=== PATIENT | female | born 1985 | race Hispanic/Latino ===

== ENCOUNTER 2017-12-02 07:42 | Emergency (ER) | payer OTHER, SELFPAY ==
[2017-12-02] MEDS ORDERED: NA CHLORIDE 0.9% 500 ML ONE (08:17)
[2017-12-02] MEDS ORDERED: ONDANSETRON 4 MG/2 ML VIAL ONE (08:17)
[2017-12-02 08:35] LABS: Absolute Lymphocytes (CBC) 1.8 K/uL (0.7-4.9); Absolute Monocytes 0.7 K/uL (0.1-1.3); Absolute Neutrophil 4.8 K/uL (1.8-8.0); Basophils % 0.2 % (0-1.3); Eosinophils % 0.6 % (0-4.4); Hematocrit 37.6 % (36.0-45.0); Lymphocytes % 24.9 % (15.3-44.8); MCH 29.5 pg (27.0-35.0); MCV 87.3 fL (80-100); MPV 8.6 fL (7.6-11.3); Monocytes % 9.6 % (3.3-12.3); RBC Red Blood Cell Count 4.31 M/uL (3.86-4.86)
[2017-12-02 08:37] LABS: Urine Blood TRACE (NEG); Urine Glucose NEGATIVE (NEG); Urine Protein NEGATIVE (NEG); Urine pH 8.5 (5.0-7.0)
[2017-12-02 08:59] LABS: BUN Blood Urea Nitrogen 9 mg/dL (7-18); Bicarbonate 30 mmol/L (21-32); Glucose Level 88 mg/dL (74-106); HCG, Quantitative 1040 mIU/mL (1-3); Potassium 3.5 mmol/L (3.5-5.1); Sodium Level 139 mmol/L (136-145)
[2017-12-02] MEDS ORDERED: NA CHLORIDE 0.9% 1,000 ML ONE (09:32)
--- NOTE | 2017-12-02 09:33 | RAD REPORT ---
EXAM DESCRIPTION: US - Renal Ultrasound-Limited - 12/02/2017 8:39 am CLINICAL HISTORY: LLQ pain and left flank;Abd pain COMPARISON: No comparisons FINDINGS: A limited left renal sonogram was requested. The left kidney measures 12.0 x 5.4 x 4.7 cm. No hydronephrosis, focal mass or perinephric fluid. IMPRESSION: Unremarkable left renal ultrasound.
--- NOTE | 2017-12-02 10:47 | RAD REPORT ---
EXAM DESCRIPTION: US - Transvaginal OB - 12/02/2017 8:43 am CLINICAL HISTORY: LLQ L flank;Abd pain COMPARISON: No comparisons FINDINGS: The uterus is enlarged measuring 11.2 x 7.9 x 7.6 cm. Several fibroids are present the lar gest subserosal right side measuring 3.5 x 2.3 cm. Fluid is present in the endometrium. Endometrial thickening is noted. There is no finding of an IUP s een. The right ovary measures 2.1 x 1.4 x 1.4 cm. Left ovary measures 3.1 x 1.9 x 1.6 cm. The maternal adnexa and ovaries are within normal limits. Normal Doppler blood flow was demonstrated to both ovaries. Mild fluid is present in the cul de sac. IMPRESSION: There is no finding to indicate an IUP. Mild free fluid is seen in the pelvis. Close int erval followup assessment would be advised with serial HCG levels and all follow-up ultrasound. Fibroid uterus is noted with a prominent subserosal fibroid noted measuring 3.5 x 2.3 cm.
--- NOTE | 2017-12-02 10:50 | EDPHYS ---
Physician Documentation [facility] Name: Hien Bocanegra Age: 32 yrs Sex: Female : 1985 Arrival Date: 12/02/2017 Time: 07:45 Bed 8 Private MD: None, None ED Physician Kendall Guajardo HPI: 12/02 08:50 This 32 yrs old Female presents to ER via Ambulatory with complaints of 5wks kdr , Abdominal Pain. 08:50 The patient presents with abdominal pain in the left upper quadrant, in the left lower kdr quadrant. Onset: The symptoms/episode began/occurred. 08:51 The symptoms radiate to the left flank. Associated signs and symptoms: Pertinent kdr positives: nausea, Pertinent negatives: anorexia, chest pain, constipation, diarrhea, dysuria, fever, headache, hematuria, palpitations, shortness of breath, vaginal discharge, vomiting, vomiting blood. The symptoms are described as intermittent, sharp. Modifying factors: The symptoms are alleviated by nothing, the symptoms are aggravated by breathing deeply, movement, touching the area, walking. Severity of pain: At its worst the pain was mild moderate in the emergency department the pain is unchanged. The patient has not experienced similar symptoms in the past. The patient has not recently seen a physician. The patient took a home test a few days ago and it was positive. 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 - Social history:: Smoking status: Patient/guardian denies using tobacco. - Ebola Screening: : Patient denies travel to an Ebola-affected area in the 21 days before illness onset. ROS: 08:54 Constitutional: Negative for fever, chills, and weight loss, Eyes: Negative for injury, kdr pain, redness, and discharge, ENT: Negative for injury, pain, and discharge, Neck: Negative for injury, pain, and swelling, Cardiovascular: Negative for chest pain, palpitations, and edema, Respiratory: Negative for shortness of breath, cough, wheezing, and pleuritic chest pain, Back: Negative for injury and pain, : Negative for injury, bleeding, discharge, and swelling, MS/Extremity: Negative for injury and deformity, Skin: Negative for injury, rash, and discoloration, Neuro: Negative for headache, weakness, numbness, tingling, and seizure activity. Psych: Negative for depression, anxiety, suicide ideation, homicidal ideation, and hallucinations, Allergy/Immunology: Negative for hives, rash, and allergies, Endocrine: Negative for neck swelling, polydipsia, polyuria, polyphagia, and marked weight changes, Hematologic/Lymphatic: Negative for swollen nodes, abnormal bleeding, and unusual bruising. 08:54 Abdomen/GI: Positive for abdominal pain, nausea, diarrhea, States that whenever she eats she had diarrhea, Negative for vomiting, constipation, abdominal distension, anorexia, dysphagia, hematemesis, black/tarry stool, rectal pain, rectal bleeding, bowel incontinence. Exam: 08:54 Constitutional: This is a well developed, well nourished patient who is awake, alert, kdr and in no acute distress. Head/Face: Normocephalic, atraumatic. Eyes: Pupils equal round and reactive to light, extra-ocular motions intact. Lids and lashes normal. Conjunctiva and sclera are non-icteric and not injected. Cornea within normal limits. Periorbital areas with no swelling, redness, or edema. Neck: Trachea midline, no thyromegaly or masses palpated, and no cervical lymphadenopathy. Supple, full range of motion without nuchal rigidity, or vertebral point tenderness. No Meningismus. Chest/axilla: Normal chest wall appearance and motion. Nontender with no deformity. No lesions are appreciated. Cardiovascular: Regular rate and rhythm with a normal S1 and S2. No gallops, murmurs, or rubs. Normal PMI, no JVD. No pulse deficits. Respiratory: Lungs have equal breath sounds bilaterally, clear to auscultation and percussion. No rales, rhonchi or wheezes noted. No increased work of breathing, no retractions or nasal flaring. Back: No spinal tenderness. No costovertebral tenderness. Full range of motion. Skin: Warm, dry with normal turgor. Normal color with no rashes, no lesions, and no evidence of cellulitis. MS/ Extremity: Pulses equal, no cyanosis. Neurovascular intact. Full, normal range of motion. Neuro: Awake and alert, GCS 15, oriented to person, place, time, and situation. Cranial nerves II-XII grossly intact. Motor strength 5/5 in all extremities. Sensory grossly intact. Cerebellar exam normal. Normal gait. Psych: Awake, alert, with orientation to person, place and time. Behavior, mood, and affect are within normal limits. 08:54 Abdomen/GI: Inspection: abdomen appears normal, Bowel sounds: diminished, in all quadrants, Palpation: soft, moderate abdominal tenderness, in the left lower quadrant. Vital Signs: 07:53 BP 122 / 75; Pulse 73; Resp 18; Pulse Ox 100% on R/A; tw2 07:58 Temp 98.2(TE); Weight 104.33 kg (R); Height 5 ft. 9 in. (175.26 cm) (R); Pain 7/10; aa5 08:51 BP 112 / 73; Pulse 66; Resp 17; Pulse Ox 100% on R/A; tw2 10:28 BP 114 / 62; Pulse 65; Resp 16; Pulse Ox 100% ; jl7 10:55 BP 114 / 68; Pulse 67; Resp 17; Pulse Ox 100% on R/A; tw2 07:58 Body Mass Index 33.96 (104.33 kg, 175.26 cm) aa5 MDM: 08:54 Data reviewed: vital signs, nurses notes, lab test result(s), radiologic studies. kdr Counseling: I had a detailed discussion with the patient and/or guardian regarding: the historical points, exam findings, and any diagnostic results supporting the discharge/admit diagnosis, lab results, radiology results. 10:49 Patient medically screened. kdr 12/02 08:01 Order name: Quantitative Hcg; Complete Time: 09:11 kdr 12/02 08:01 Order name: Abo/rh Typing; Complete Time: 09:11 kdr 12/02 08:01 Order name: Basic Metabolic Panel; Complete Time: 09:11 kdr 12/02 08:01 Order name: CBC with Diff; Complete Time: 09:11 kdr 12/02 08:05 Order name: Urine Dipstick--Ancillary (enter results); Complete Time: 09:11 bd 12/02 08:05 Order name: Urine --Ancillary (enter results); Complete Time: 09:11 bd 12/02 08:16 Order name: Renal Ultrasound-Limited; Complete Time: 09:46 EDMS 12/02 08:39 Order name: Transvaginal OB EDKY 12/02 08:57 Order name: ABO/RH no charge; Complete Time: 09:11 EDMS 12/02 08:01 Order name: IV Saline Lock; Complete Time: 08:04 kdr 12/02 08:01 Order name: Labs collected and sent; Complete Time: 08:04 kdr 12/02 08:01 Order name: NPO; Complete Time: 08:04 kdr 12/02 08:01 Order name: Urine Dipstick-Ancillary (obtain specimen); Complete Time: 08:16 kdr Administered Medications: 08:13 Drug: Zofran 4 mg Route: IVP; Site: right antecubital; tw2 09:15 Follow up: Response: No adverse reaction; Nausea is decreased tw2 08:15 Drug: NS 0.9% 500 ml Route: IV; Rate: bolus; Site: right antecubital; tw2 09:40 Follow up: Response: No adverse reaction; IV Status: Completed infusion; IV Intake: tw2 500ml 09:29 Drug: NS 0.9% 1000 ml Route: IV; Rate: 1 bolus; Site: right antecubital; tw2 11:00 Follow up: IV Status: Order to discontinue infusion; IV Intake: 200ml ; pt refused the tw2 rest of the iv fluids approx 800 ml Disposition: 12/02/17 10:49 Discharged to Home. Impression: related conditions, unspecified, Diarrhea, unspecified. - Condition is Stable. - Discharge Instructions: First Trimester of , [id number], Diarrhea, Adult, [id number]-[id number], Abdominal Pain During , Ingr-ea-Trxz. - Medication Reconciliation Form, Thank You Letter form. - Follow up: Private Physician; When: 48 Hours; Reason: Further diagnostic work-up, Repeat Beta-HCG (48 Hours). Follow up: Kyree Bhat MD; When: 48 Hours; Reason: Further diagnostic work-up, Repeat Beta-HCG (48 Hours). - Problem is new. - Symptoms have improved. Signatures: Dispatcher [facility] Kendall Guajardo MD MD kdr Maribel Francois RN RN aa5 Rose Marie Delgado RN RN tw2 Corrections: (The following items were deleted from the chart) 08:16 08:11 Abdomen Limited+US.RAD.BRZ ordered. EDKY EDMS 08:39 08:11 Transvaginal Study (Probe)+US.RAD.BRZ ordered. EDKY EDMS 11:02 10:49 12/02/2017 10:49 Discharged to Home. Impression: related conditions, tw2 unspecified; Diarrhea, unspecified. Condition is Stable. Forms are Medication Reconciliation Form, Thank You Letter, Antibiotic Education, Prescription Opioid Use. Follow up: Private Physician; When: 48 Hours; Reason: Further diagnostic work-up, Repeat Beta-HCG (48 Hours). Follow up: Kyree Bhat; When: 48 Hours; Reason: Further diagnostic work-up, Repeat Beta-HCG (48 Hours). Problem is new. Symptoms have improved. kdr
--- NOTE | 2017-12-02 10:50 | ER ---
Nurse's Notes [facility] Name: Hien Bocanegra Age: 32 yrs Sex: Female : 1985 Arrival Date: 12/02/2017 Time: 07:45 Bed 8 Private MD: None, None Diagnosis: related conditions, unspecified;Diarrhea, unspecified Presentation: 12/02 07:54 Presenting complaint: Patient states: LLQ pain radiating to left low back that began 2 aa5 weeks ago. Pt reports nausea, denies vomiting. Pt reports positive test approximately 3 days ago. Denies vaginal bleeding. Transition of care: patient was not received from another setting of care. Onset of symptoms was November 2017. Risk Assessment: Do you want to hurt yourself or someone else? Patient reports no desire to harm self or others. Initial Sepsis Screen: Does the patient meet any 2 criteria? No. Patient's initial sepsis screen is negative. Does the patient have a suspected source of infection? No. Patient's initial sepsis screen is negative. Care prior to arrival: None. 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 - Social history:: Smoking status: Patient/guardian denies using tobacco. - Ebola Screening: : Patient denies travel to an Ebola-affected area in the 21 days before illness onset. Screenin:54 Abuse screen: Denies threats or abuse. Nutritional screening: No deficits noted. tw2 Tuberculosis screening: No symptoms or risk factors identified. Fall Risk None identified. Assessment: 08:01 General: Appears uncomfortable, well groomed, Behavior is calm, cooperative, tw2 appropriate for age. Pain: Complains of pain in abdomen. Neuro: Level of Consciousness is awake, alert, obeys commands, Oriented to person, place, time, situation. Cardiovascular: Denies chest pain, shortness of breath, Heart tones S1 S2 Patient's skin is warm and dry. Respiratory: Airway is patent Respiratory effort is even, unlabored, Respiratory pattern is regular, symmetrical, Breath sounds are clear bilaterally. GI: Bowel sounds present X 4 quads. Abd is soft X 4 quads Reports lower abdominal pain, nausea, that radiates to left lower back. : No signs and/or symptoms were reported regarding the genitourinary system. EENT: No signs and/or symptoms were reported regarding the EENT system. Derm: No signs and/or symptoms reported regarding the dermatologic system. Musculoskeletal: Range of motion: intact in all extremities. 08:51 Reassessment: Patient appears in no apparent distress at this time. Patient and/or tw2 family updated on plan of care and expected duration. Pain level reassessed. Patient is alert, oriented x 3, equal unlabored respirations, skin warm/dry/pink. Patient states feeling better. Patient states symptoms have improved. 09:40 Reassessment: Patient appears in no apparent distress at this time. Patient and/or tw2 family updated on plan of care and expected duration. Pain level reassessed. Patient is alert, oriented x 3, equal unlabored respirations, skin warm/dry/pink. Patient states feeling better. Patient states symptoms have improved. 11:01 Reassessment: Patient appears in no apparent distress at this time. Patient and/or tw2 family updated on plan of care and expected duration. Pain level reassessed. Patient is alert, oriented x 3, equal unlabored respirations, skin warm/dry/pink. Patient states feeling better. Patient states symptoms have improved. Vital Signs: 07:53 BP 122 / 75; Pulse 73; Resp 18; Pulse Ox 100% on R/A; tw2 07:58 Temp 98.2(TE); Weight 104.33 kg (R); Height 5 ft. 9 in. (175.26 cm) (R); Pain 7/10; aa5 08:51 BP 112 / 73; Pulse 66; Resp 17; Pulse Ox 100% on R/A; tw2 10:28 BP 114 / 62; Pulse 65; Resp 16; Pulse Ox 100% ; jl7 10:55 BP 114 / 68; Pulse 67; Resp 17; Pulse Ox 100% on R/A; tw2 07:58 Body Mass Index 33.96 (104.33 kg, 175.26 cm) aa5 ED Course: 07:45 Patient arrived in ED. mr 07:45 None, None is Private Physician. mr 07:53 Rose Marie Delgado, RN is Primary Nurse. tw2 07:54 Arm band placed on Patient placed in an exam room, on a stretcher. aa5 07:54 Bed in low position. Call light in reach. Pulse ox on. NIBP on. Warm blanket given. tw2 07:56 Triage completed. aa5 07:59 Kendall Guajardo MD is Attending Physician. kdr 08:00 Inserted saline lock: 20 gauge in right antecubital area, using aseptic technique. tw2 Blood collected. 08:13 Urine collected: clean catch specimen, clear. mh5 08:16 Urine --Ancillary (enter results) Sent. mh5 08:16 Urine Dipstick--Ancillary (enter results) Sent. mh5 08:24 Patient taken to ultrasound. hr 08:39 Renal Ultrasound-Limited In Process Unspecified. EDMS 08:43 Transvaginal OB In Process Unspecified. EDMS 08:44 Ultrasound completed. Patient moved back from ultrasound. hr 10:47 Kyree Bhat MD is Referral Physician. kdr 11:02 No provider procedures requiring assistance completed. IV discontinued, intact, tw2 bleeding controlled, No redness/swelling at site. Pressure dressing applied. Administered Medications: 08:13 Drug: Zofran 4 mg Route: IVP; Site: right antecubital; tw2 09:15 Follow up: Response: No adverse reaction; Nausea is decreased tw2 08:15 Drug: NS 0.9% 500 ml Route: IV; Rate: bolus; Site: right antecubital; tw2 09:40 Follow up: Response: No adverse reaction; IV Status: Completed infusion; IV Intake: tw2 500ml 09:29 Drug: NS 0.9% 1000 ml Route: IV; Rate: 1 bolus; Site: right antecubital; tw2 11:00 Follow up: IV Status: Order to discontinue infusion; IV Intake: 200ml ; pt refused the tw2 rest of the iv fluids approx 800 ml Intake: 09:40 IV: 500ml; Total: 500ml. tw2 11:00 IV: 200ml; Total: 700ml. tw2 Outcome: 10:49 Discharge ordered by . kdr 11:02 Discharged to home ambulatory. tw2 11:02 Condition: stable 11:02 Discharge instructions given to patient, Instructed on discharge instructions, follow up and referral plans. Demonstrated understanding of instructions, follow-up care. 11:02 Patient left the ED. tw2 Signatures: Dispatcher [employer] Kendall Lemus MD MD kdr Rivera, Maria mr Rod, Maribel Davis, RN RN aa5 Rose Marie Delgado RN RN [email or web address] Janet Augustine Gloria Alcazar RN RN [id number] Corrections: (The following items were deleted from the chart) 07:59 07:58 Temp 98.2F Temporal; [place] aaKale
== END 2017-12-02 11:02 | disposition home or self-care (01) ==
LOC: ER 07:42
DX: R19.7 Diarrhea, unspecified (principal); Z3A.01 Less than 8 weeks gestation of pregnancy; Z91.040 Latex allergy status; Z91.048 Other nonmedicinal substance allergy status
CPT/HCPCS: 36415; 76775; 76817; 80048; 81003; 81025; 84702; 85025; 86900; 86901; 96361; 96374; 99284; J2405; J7030

== ENCOUNTER 2017-12-05 03:16 | Emergency (ER) | payer OTHER, SELFPAY ==
[2017-12-05 03:55] LABS: Urine Blood 2+ (NEG); Urine Glucose NEGATIVE (NEG); Urine Protein NEGATIVE (NEG); Urine Specific Gravity 1.025 (1.005-1.030); Urine pH 5.5 (5.0-7.0)
[2017-12-05] MEDS ORDERED: MORPHINE 4 MG/ML SYR ONE (04:13)
[2017-12-05] MEDS ORDERED: NA CHLORIDE 0.9% 500 ML ONE (04:13)
[2017-12-05] MEDS ORDERED: ONDANSETRON 4 MG/2 ML VIAL ONE ×2 (04:13→05:13)
[2017-12-05] MEDS ORDERED: FAMOTIDINE 20 MG/2 ML VIAL IV ONE (04:14)
--- NOTE | 2017-12-05 06:43 | EDPHYS ---
Physician Documentation [facility] Name: Hien Bocanegra Age: 32 yrs Sex: Female : 1985 Arrival Date: 12/05/2017 Time: 03:19 Bed 17 Private MD: ED Physician Casper Griffin HPI: 12/05 03:56 This 32 yrs old Female presents to ER via Ambulatory with complaints of ps1 Abdominal Pain, Vomiting/Diarrhea, 5 weeks preg. 03:56 patient presenting with nausea and vomting and abdominal pain. Pain localized to ps1 LLQ/adenexa. Pain is severe. Associated with diarrhea. recently seen for same and had indeterminate HCG <1500. No IUP on TVUS. Referred to Perlita. Has not seen him and does not have a relationship with him up to this point. She recently moved here from [place] and does not have an OB.. 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 - Social history:: Smoking status: Patient/guardian denies using tobacco, Patient/guardian denies using alcohol, street drugs. - Ebola Screening: : Patient negative for fever greater than or equal to 101.5 degrees Fahrenheit, and additional compatible Ebola Virus Disease symptoms Patient denies exposure to infectious person Patient denies travel to an Ebola-affected area in the 21 days before illness onset. ROS: 03:56 Constitutional: Negative for fever, chills, and weight loss, Eyes: Negative for injury, ps1 pain, redness, and discharge, Cardiovascular: Negative for chest pain, palpitations, and edema, Respiratory: Negative for shortness of breath, cough, wheezing, and pleuritic chest pain, Abdomen/GI: Negative for abdominal pain, nausea, vomiting, diarrhea, and constipation. 03:56 Skin: Negative for injury, rash, and discoloration, Neuro: Negative for headache, weakness, numbness, tingling, and seizure. 03:56 : Positive for pelvic pain. Exam: 03:56 Constitutional: This is a well developed, well nourished patient who is awake, alert, ps1 and in no acute distress. Head/Face: Normocephalic, atraumatic. Eyes: Pupils equal round and reactive to light, extra-ocular motions intact. Lids and lashes normal. Conjunctiva and sclera are non-icteric and not injected. Chest/axilla: Normal chest wall appearance and motion. Nontender with no deformity. No lesions are appreciated. Cardiovascular: Regular rate and rhythm. No gallops, murmurs, or rubs. Normal PMI, no JVD. No pulse deficits. Respiratory: Lungs have equal breath sounds bilaterally, clear to auscultation and percussion. No rales, rhonchi or wheezes noted. No increased work of breathing, no retractions or nasal flaring. 03:56 Skin: Warm, dry with normal turgor. Normal color with no rashes, no lesions, and no evidence of cellulitis. MS/ Extremity: Pulses equal, no cyanosis. Neurovascular intact. Full, normal range of motion. Neuro: Awake and alert, GCS 15, oriented to person, place, time, and situation. Cranial nerves II-XII grossly intact. Sensory grossly intact. 03:56 Abdomen/GI: Inspection: abdomen appears normal, Bowel sounds: normal, Palpation: moderate abdominal tenderness, in the left lower quadrant. Vital Signs: 03:32 BP 119 / 91; Pulse 94; Resp 20; Temp 98.9(O); Pulse Ox 100% on R/A; Weight 99.79 kg; ao Height 5 ft. 9 in. (175.26 cm); Pain 10/10; 04:35 BP 123 / 86; Pulse 85; Resp 16; Pulse Ox 94% ; Pain 0/10; ao 05:40 BP 124 / 84; Pulse 86; Resp 16; Pulse Ox 100% ; Pain 0/10; ao 03:32 Body Mass Index 32.49 (99.79 kg, 175.26 cm) ao MDM: 04:28 Patient medically screened. ps1 06:39 Data reviewed: vital signs, nurses notes, lab test result(s), Beta HCG: radiologic ps1 studies, ultrasound, and as a result, I will discharge patient. Counseling: I had a detailed discussion with the patient and/or guardian regarding: the historical points, exam findings, and any diagnostic results supporting the discharge/admit diagnosis, lab results, radiology results, to return to the emergency department if symptoms worsen or persist or if there are any questions or concerns that arise at home, patient has early IUP 5w1d. Low probability of heterotopic. Pain improved. Stable for dc with reglan. Follow up with Perlita. . 12/05 03:48 Order name: Urine Dipstick--Ancillary (enter results); Complete Time: 04:22 mw2 12/05 03:48 Order name: Urine --Ancillary (enter results); Complete Time: 04:22 mw2 12/05 03:53 Order name: Quantitative Hcg; Complete Time: 04:57 ps1 12/05 04:59 Order name: US Transvaginal Ob ps1 Administered Medications: 04:21 Drug: NS 0.9% 500 ml Route: IV; Rate: bolus; Site: left antecubital; ao 05:10 Follow up: IV Status: Completed infusion; IV Intake: 500ml ao 04:22 Not Given (Patient Refused): Reglan 10 mg IVP once; over 1 to 2 minutes ao 05:09 Drug: morphine 4 mg Route: IVP; Site: right antecubital; ao 06:51 Follow up: Response: No adverse reaction ao 05:10 Drug: Zofran 4 mg Route: IVP; Site: right antecubital; ao 06:51 Follow up: Response: No adverse reaction ao Disposition: 12/05/17 06:42 Discharged to Home. Impression: related conditions, unspecified, Nausea and vomiting, Abdominal and pelvic pain. - Condition is Stable. - Discharge Instructions: Abdominal Pain During , Hyperemesis Gravidarum. - Prescriptions for Reglan 10 mg Oral Tablet - take 1 tablet by ORAL route every 6 hours . take 30 minutes before meals and at bedtime; 100 tablet. - Medication Reconciliation Form, Thank You Letter, Antibiotic Education, Prescription Opioid Use form. - Follow up: Kyree Bhat MD; When: 2 - 3 days; Reason: Recheck today's complaints, Continuance of care, Re-evaluation by your physician. Follow up: Emergency Department; When: As needed; Reason: Worsening of condition. - Problem is an ongoing problem. - Symptoms have worsened. Signatures: Dispatcher [employer] Garth Robbins RN RN Casper Hutchinson MD MD ps1 Corrections: (The following items were deleted from the chart) 06:51 06:42 12/05/2017 06:42 Discharged to Home. Impression: related conditions, ao unspecified; Nausea and vomiting; Abdominal and pelvic pain. Condition is Stable. Forms are Medication Reconciliation Form, Thank You Letter, Antibiotic Education, Prescription Opioid Use. Follow up: Kyree Bhat; When: 2 - 3 days; Reason: Recheck today's complaints, Continuance of care, Re-evaluation by your physician. Follow up: Emergency Department; When: As needed; Reason: Worsening of condition. Problem is an ongoing problem. Symptoms have worsened. ps1
--- NOTE | 2017-12-05 06:43 | ER ---
Nurse's Notes [facility] Name: Hien Bocanegra Age: 32 yrs Sex: Female : 1985 Arrival Date: 12/05/2017 Time: 03:19 Bed 17 Private MD: Diagnosis: related conditions, unspecified;Nausea and vomiting;Abdominal and pelvic pain Presentation: 12/05 03:27 Presenting complaint: Patient states: Abdominal pain for 24 hours. Patient complains of ao right lower pain that started few hours ago. Patient reports diarrhea and a bloody mucus coming from rectum. Denies vaginal bleeding and about 5 weeks. Transition of care: patient was not received from another setting of care. Onset of symptoms was December 04, 2017 at 03:00. Risk Assessment: Do you want to hurt yourself or someone else? Patient reports no desire to harm self or others. Initial Sepsis Screen: Does the patient meet any 2 criteria? No. Patient's initial sepsis screen is negative. Does the patient have a suspected source of infection? No. Patient's initial sepsis screen is negative. Care prior to arrival: None. 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 - Social history:: Smoking status: Patient/guardian denies using tobacco, Patient/guardian denies using alcohol, street drugs. - Ebola Screening: : Patient negative for fever greater than or equal to 101.5 degrees Fahrenheit, and additional compatible Ebola Virus Disease symptoms Patient denies exposure to infectious person Patient denies travel to an Ebola-affected area in the 21 days before illness onset. Screenin:40 Abuse screen: Denies threats or abuse. Denies injuries from another. Nutritional ao screening: No deficits noted. Tuberculosis screening: No symptoms or risk factors identified. Fall Risk None identified. Assessment: 03:30 General: Appears in no apparent distress. comfortable, Behavior is calm, cooperative, ao appropriate for age. Pain: Complains of pain in abdomen Pain does not radiate. Neuro: Level of Consciousness is awake, alert, obeys commands, Oriented to person, place, time, situation, Appropriate for age Moves all extremities. Full function Speech is normal, Facial symmetry appears normal. Cardiovascular: Capillary refill < 3 seconds Patient's skin is warm and dry. Respiratory: Airway is patent Respiratory effort is even, unlabored, Respiratory pattern is regular, symmetrical. GI: Abdomen is obese, Bowel sounds present X 4 quads. Abd is soft and non tender X 4 quads. Reports nausea, vomiting. GI: Reports rectal bleeding. : No signs and/or symptoms were reported regarding the genitourinary system. EENT: No signs and/or symptoms were reported regarding the EENT system. Derm: No signs and/or symptoms reported regarding the dermatologic system. Skin is intact, Skin is pink, warm \T\ dry. normal, Skin temperature is warm. Musculoskeletal: Circulation, motion, and sensation intact. Range of motion: intact in all extremities. 04:35 Reassessment: Patient appears in no apparent distress at this time. Patient and/or ao family updated on plan of care and expected duration. Pain level reassessed. Patient refused Pepcid and morphine and stated that would rather be in pain then taking the risk affecting her . Patient was educated in medications. Dr Griffin was notified. 05:40 Reassessment: Patient appears in no apparent distress at this time. Patient and/or ao family updated on plan of care and expected duration. Pain level reassessed. Waiting on ultrasound. 06:14 Reassessment: Ultrasound at bedside. Patient stated she feel better after pain ao medication was given. 06:49 Reassessment: DC Instructions given to patient. patient agree with the POC and to ao follow up with DR Bhat. No questions at this time. Vital Signs: 03:32 BP 119 / 91; Pulse 94; Resp 20; Temp 98.9(O); Pulse Ox 100% on R/A; Weight 99.79 kg; ao Height 5 ft. 9 in. (175.26 cm); Pain 10/10; 04:35 BP 123 / 86; Pulse 85; Resp 16; Pulse Ox 94% ; Pain 0/10; ao 05:40 BP 124 / 84; Pulse 86; Resp 16; Pulse Ox 100% ; Pain 0/10; ao 03:32 Body Mass Index 32.49 (99.79 kg, 175.26 cm) ao ED Course: 03:19 Patient arrived in ED. es 03:27 Garth Rodriges, RN is Primary Nurse. ao 03:31 Triage completed. ao 03:33 Arm band placed on right wrist. Patient placed in an exam room, on a stretcher, on ao pulse oximetry, Patient notified of wait time. 03:40 Patient has correct armband on for positive identification. Placed in gown. Bed in low ao position. Call light in reach. Pulse ox on. NIBP on. 03:47 Casper Griffin MD is Attending Physician. ps1 04:02 Urine collected: clean catch specimen, jerson colored, Amount Voided: 25mL. oe 04:19 Inserted saline lock: 20 gauge in right antecubital area, using aseptic technique. oe Blood collected. 06:35 Ultrasound completed. Patient tolerated well. Notified ED Physician . sg3 06:37 US Transvaginal Ob In Process Unspecified. EDMS 06:41 Kyree Bhat MD is Referral Physician. ps1 06:48 No provider procedures requiring assistance completed. IV discontinued, intact, ao bleeding controlled, No redness/swelling at site. Pressure dressing applied. Administered Medications: 04:21 Drug: NS 0.9% 500 ml Route: IV; Rate: bolus; Site: left antecubital; ao 05:10 Follow up: IV Status: Completed infusion; IV Intake: 500ml ao 04:22 Not Given (Patient Refused): Reglan 10 mg IVP once; over 1 to 2 minutes ao 05:09 Drug: morphine 4 mg Route: IVP; Site: right antecubital; ao 06:51 Follow up: Response: No adverse reaction ao 05:10 Drug: Zofran 4 mg Route: IVP; Site: right antecubital; ao 06:51 Follow up: Response: No adverse reaction ao Intake: 05:10 IV: 500ml; Total: 500ml. ao Outcome: 06:42 Discharge ordered by . ps1 06:48 Discharged to home ambulatory. ao 06:48 Condition: stable 06:48 Discharge instructions given to patient, Instructed on discharge instructions, follow up and referral plans. Demonstrated understanding of instructions, follow-up care, medications. 06:51 Patient left the ED. ao Signatures: Dispatcher [employer] EDNJ Freya Lewis Alex RN RN ao Kun Valdes Phillip, MD MD ps1 Suzie Davis sg3 Corrections: (The following items were deleted from the chart) 03:54 03:27 Presenting complaint: Patient states: Abdominal pain for 24 hours. Patient ao complains of right lower pain that started few hours ago. Patient report mucus bloody coming from the rectum. ao 03:58 03:27 Presenting complaint: Patient states: Abdominal pain for 24 hours. Patient ao complains of right lower pain that started few hours ago. Patient report mucus bloody coming from the rectum. Denies vaginal bleeding and about 5 weeks ao 06:15 06:12 Reassessment: Patient appears in no apparent distress at this time. Patient ao and/or family updated on plan of care and expected duration. Pain level reassessed. Waiting on ultrasound ao
--- NOTE | 2017-12-05 08:25 | RAD REPORT ---
EXAM DESCRIPTION: US - Transvaginal OB - 12/05/2017 6:37 am CLINICAL HISTORY: Pelvic pain, left adnexal pain, positive Preliminary findings provided at the time of the study. COMPARISON: Ultrasound study December 02 FINDINGS: Approximately 3.5 centimeter right-side fundal subserosal fibroid has not changed over thi s very short interval. No other new or progressive myometrial finding. A small round fluid collection has developed in the fundal endometrial cavity, from the December 02 study. Average diameter would c orrespond to a 5 week 1 day gestational sac. No yolk sac or pole identifiable. Trace amount of fluid in the endometrial cavity. No left ovary abnormality. Doppler evaluation shows normal left ovarian blood flow pattern. No hemato ma mass or other left adnexal finding. No evidence for left adnexal ectopic . Right ovary was not identifiable, obscured by bowel. No right adnexal mass seen. IMPRESSION: A new 5 week 1 day sized round fluid collection in the endometrial cavity is consistent with a very early IUP. Trace amount of fluid in the endometrial cavity. No pole or yolk sac yet identifiable. Follow-up sonography could be performed based on symptoms and serial HCG values. Left ovary and left adnexa are unremarkable. No evidence for a left ectopic . Nonvisualization of the right ovary. No right adnexal mass seen.
== END 2017-12-05 06:51 | disposition home or self-care (01) ==
LOC: ER 03:16
DX: O26.891 Other specified pregnancy related conditions, first trimester (principal); Z3A.01 Less than 8 weeks gestation of pregnancy; R10.2 Pelvic and perineal pain; R10.9 Unspecified abdominal pain; R11.2 Nausea with vomiting, unspecified
CPT/HCPCS: 36415; 76817; 81003; 81025; 84702; 96361; 96374; 96375; 99284; J2405

== ENCOUNTER 2018-02-24 19:10 | Emergency (ER) | payer MEDICAID, OTHER ==
--- NOTE | 2018-02-24 20:45 | ER ---
Nurse's Notes [facility] Name: Hien Bocanegra Age: 32 yrs Sex: Female : 1985 Arrival Date: 02/24/2018 Time: 19:15 Bed Waiting Private MD: Diagnosis: Presentation: 02/24 19:38 Presenting complaint: Patient states: Gush of bright red blood at 1800 today that has aj stopped. Reports cramping in back. Transition of care: patient was not received from another setting of care. Onset of symptoms was February 24, 2018. Risk Assessment: Do you want to hurt yourself or someone else? Patient reports no desire to harm self or others. Initial Sepsis Screen: Does the patient meet any 2 criteria? No. Patient's initial sepsis screen is negative. Does the patient have a suspected source of infection? No. Patient's initial sepsis screen is negative. Care prior to arrival: None. 19:38 Method Of Arrival: Ambulatory aj 19:38 Acuity: IRVIN 3 aj 19:42 Note Patient stated "Should I just go to my OB in the morning? I don't want to wait. aj Can you just take me back now?" Patient informed of wait time. Triage Assessment: 19:39 General: Appears in no apparent distress. comfortable, Behavior is calm, cooperative, aj appropriate for age. Pain: Complains of pain in low back area. Neuro: Level of Consciousness is awake, alert, obeys commands, Oriented to person, place, time, situation, Appropriate for age. Respiratory: Airway is patent Respiratory effort is even, unlabored, Respiratory pattern is regular, symmetrical. : Reports vaginal bleeding that is bright red. Derm: Skin is intact, is healthy with good turgor, Skin is pink, warm \\T\\ dry. normal. 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 - Social history:: Smoking status: Patient/guardian denies using tobacco. - Ebola Screening: : Patient negative for fever greater than or equal to 101.5 degrees Fahrenheit, and additional compatible Ebola Virus Disease symptoms Patient denies exposure to infectious person Patient denies travel to an Ebola-affected area in the 21 days before illness onset No symptoms or risks identified at this time. Vital Signs: 19:39 BP 122 / 72; Pulse 87; Resp 20; Temp 98.2; Pulse Ox 99% on R/A; Weight 108.86 kg; aj Height 5 ft. 9 in. (175.26 cm); 19:39 Body Mass Index 35.44 (108.86 kg, 175.26 cm) aj ED Course: 19:15 Patient arrived in ED. am2 19:39 Triage completed. aj 19:39 Arm band placed on left wrist. Patient placed in waiting room, Patient notified of wait aj time. 20:15 Patient's name was called from ER lobby. No response. aj 20:42 Evangelist Solis PA is PHCP. jr8 20:42 Roel Gracia MD is Attending Physician. jr8 Administered Medications: No medications were administered Outcome: 20:44 Eloped from waiting room, Time discovered patient gone: February 24, 2018 at 20:44 aj 20:44 Patient left the ED. aj Signatures: Dania Smith, RN RN Evangelist Castaneda PA PA jr8 Dania Brown am2
== END 2018-02-24 20:44 | disposition left against medical advice (07) ==
LOC: ER 19:10
DX: Z53.21 Procedure and treatment not carried out due to patient leaving prior to being seen by health care provider (principal)
CPT/HCPCS: 99281

== ENCOUNTER 2018-07-06 12:59 | Observation (INO) | payer OTHER, SELFPAY ==
--- OUTSIDE RECORDS SUMMARY | 2018-07-06 13:03 | XMS REPORT ---
:1985 [facility] Address [address] [place] [address] Dr. Gabriel [address] [place] [id number] Care Team Providers Name Role Phone Unavailable Unavailable Unavailable Problems This patient has no known problems. Allergies, Adverse Reactions, Alerts This patient has no known allergies or adverse reactions. Medications This patient has no known medications.
[2018-07-06 14:49] LABS: RPR Titer ND
[2018-07-06 14:53] LABS: Absolute Lymphocytes (CBC) 1.6 K/uL (0.7-4.9); Absolute Monocytes 0.8 K/uL (0.1-1.3); Absolute Neutrophil 7.8 K/uL (1.8-8.0); Basophils % 0.1 % (0-1.3); Eosinophils % 0.3 % (0-4.4); Hematocrit 32.6 % (36.0-45.0); Lymphocytes % 15.5 % (15.3-44.8); MPV 8.3 fL (7.6-11.3); Monocytes % 7.7 % (3.3-12.3)
[2018-07-06] MEDS ORDERED: Ringers Lactate 1,000 ML IV SCH (15:00)
--- NOTE | 2018-07-06 15:24 | RAD REPORT ---
EXAM DESCRIPTION: US - OB Complete - 07/06/2018 2:24 pm CLINICAL HISTORY: 35 weeks with vaginal bleeding Preliminary findings provided the time of the study. COMPARISON: November 2017 FINDINGS: A single cephalic presenting gestation is identified. The 4 chamber heart view has a sophy l appearance. Heart rate normal. The intracranial contents and spine are grossly normal. A lef t-sided stomach bubble is seen with normal appearing bladder and kidneys. The 3 vessel cord, inserti on site and anterior abdominal wall have normal appearance. No abnormalities are identifiable. measurements are as follows: BPD:8.77 Centimeters 35 weeks 3 days HC:31.78 Centimeters 35 weeks 5 days AC:30.75 Centimeters 34 weeks 5 days HL:5.76 Centimeters 33 weeks 3 days FL:6.45 Centimeters 33 weeks 2 days The estimated gestational age (EGA) is 34 weeks 4 days with an DAVID of 08/13/2018. ratios are n ormal or within acceptable limits. The placenta is grade I, anterior in location. No low-lying or mitch centa previa. The amniotic fluid volume is normal. IRENE is normal range at 7.19 cm (6.86-27.90 centim eter normal range). Estimated weight is 2443 grams. Maternal adnexa obscured. IMPRESSION: 1. Single, cephalic gestation with an EGA of 34 weeks 4 days and an DAVID of the 9. Sonographic due date has lengthened by 7 days since the November early OB examination. This diff erential is not outside of normal range. 2. No abnormalities are identifiable. ratios are normal or within acceptable limits. 3. Grade I, anterior placenta with no low-lying or placenta previa. 4. Amniotic fluid volume is normal.
[2018-07-06] MEDS ORDERED: ZOLPIDEM TARTRATE 10 MG TABLET PO PRN (17:45)
[2018-07-06] MEDS ORDERED: MORPHINE 4 MG/ML SYR IV ONE (17:49)
--- NOTE | 2018-07-06 18:59 | PREOPHP ---
Date of Admission: 07/06/2018 History Of Present Illness: This is a 33-year-old, 3, para 2, [facility] patient at 35 weeks 5 day s, brought in by EMS services. She says she was at [facility] and she thought she ruptured her membran es, with fluid coming out, but it turned out to be blood. She has had ultrasounds during the pregnan cy. There has been no mention of placenta previa. She is not having any pain except a lower discomf ort in her back. The baby looks very good on the monitor. She has blood on her panties that were br ought in, but her cervix is closed, and there is no blood in the vagina to speak of at this point, ce rtainly no active bleeding. The baby is very high, probably vertex. We will start an IV, start hydration, get an ultrasound to see if we are dealing with an abruption th at possibly has stopped at this point. Full discussion with the patient and family. Vital signs are all stable. Family history and past medical history are all noncontributory at this point. Physical Examination: General: Shows no obvious distress, healthy female. Heart: Clear. Lungs: Clear. Breasts: Not examined. Abdomen: Appropriate for the size and stage of the . The patient is a very large woman. Extremities: Clear. Pelvic: Exam as stated. Assessment And Plan: IV hydration, ultrasound and evaluation. But at this point, the patient is alfonso te stable. OWEN/ROSEANN Voice ID: [id number]
[2018-07-06 23:40] LABS: RPR (Rapid Plasma Reagin) NON-REACT (NON-REACT)
--- NOTE | 2018-07-08 03:34 | DS ---
Date of Discharge: 07/07/2018 Hospital Course: A 33-year-old, 3, para 2, previous C-sections, 35 weeks 4-5 days came in wi th sudden onset of vaginal bleeding. Ultrasound demonstrated no abruption, normal amount of fluid, e verything basically normal. Blood pressure, vital signs all normal. She was not really having contr actions, little lower back discomfort, and that was it. She has been quite stable. Bleeding has com pletely stopped. In fact with the first exam, there was no bleeding at all. Cervical os was closed. Baby was very high. Possibility for a marginal abruption which is now stopped. She has ambulated slightly. We will let her ambulate again more today and if she does well dismiss her sometime around lunchtime. She is instructed to call [facility] people, tell them that she was here. She tells me that s he was scheduled for at 40 weeks, that is between of course Ms. Bocanegra and her physicians at [facility], but she wants the done at 38 and half to 39 weeks which I think would be very wilda sonable especially in view of the current circumstances. She is Rh positive, so RhoGAM is not needed . Full dismissal instructions given. Final Diagnoses: Intrauterine gestation, 35 weeks 4 days, according to the patient, slightly less ac cording to ultrasound. Episode of vaginal bleeding, now stopped. No signs of abruption, placenta pr evia, or any other problems. OWEN/ROSEANN Voice ID: [id number] Report ID: [id number]
[2018-07-12 04:19] LABS: HBsAG Nonreactive (Nonreactive)
== END 2018-07-07 10:00 | disposition home or self-care (01) ==
LOC: L&D 12:59 → 2ND-WCNRSY 14:32 → 2ND-WC 15:07
PROVIDERS: ADMIT Specialist; ATTEND Specialist
DX: O46.93 Antepartum hemorrhage, unspecified, third trimester (principal); Z3A.35 35 weeks gestation of pregnancy
CPT/HCPCS: 36415; 76805; 85025; 86592; 86850; 86900; 86901; 87340; G0378; G0433